=== PATIENT | male | born 1995 | race American Indian/Alaskan Native ===

== ENCOUNTER 2022-03-13 19:25 | Emergency (ER) | payer OTHER ==
[2022-03-13 21:06] VITALS: BP 115/68
[2022-03-14] MEDS ORDERED: IBUPROFEN 800 MG TAB PO ONE (03:16)
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
== END 2022-03-14 04:16 | disposition home or self-care (01) ==
LOC: ED 19:25
DX: M25.552 Pain in left hip (principal); V49.9XXA Car occupant (driver) (passenger) injured in unspecified traffic accident, initial encounter; Y93.89 Activity, other specified; Y92.89 Other specified places as the place of occurrence of the external cause; Y99.8 Other external cause status
CPT/HCPCS: 99282